=== PATIENT | female | born 1970 | race African-American/Black ===

== ENCOUNTER 2023-06-12 08:09 | Outpatient (OUT) | payer OTHER, SELFPAY ==
[2023-06-12 08:54] LABS: Erythrocyte Sedimentation Rate 31 mm/hr (<=30)
[2023-06-13 06:09] LABS: Rheumatoid Factor (RF) <10.0 IU/mL (<14.0)
[2023-06-13 11:09] LABS: Antiscleroderma-70 Antibodies <0.2 AI (0.0-0.9)
[2023-06-13 12:10] LABS: ANA Direct Positive (Negative); Anti-CCP Ab, IgG/IgA 5 units (0-19); Anti-DNA (DS) Ab Qn <1 IU/mL (0-9); RNP Antibodies 2.1 AI (0.0-0.9); Sjogren's Anti-SS-A <0.2 AI (0.0-0.9); Sjogren's Anti-SS-B 0.2 AI (0.0-0.9)
[2023-06-13 14:09] LABS: Angiotensin-Converting Enzyme 69 U/L (14-82)
[2023-06-14 19:14] LABS: QuantiFERON-TB Gold Plus Negative (Negative)
[2023-06-15 18:08] LABS: Aspergillus flavus Negative (Neg:<1:1); Aspergillus fumigatus Negative (Neg:<1:1); Aspergillus niger Negative (Neg:<1:1); Blastomyces Abs, Qn, DID Negative (Neg:<1:1)
[2023-06-15 20:09] LABS: Coccidioides Ab, IgG, EIA 0.4 EIA Units (.); Coccidioides Ab, IgM, EIA 0.1 EIA Units (.)
[2023-06-17 21:09] LABS: Anti-MPO Antibodies <0.2 units (0.0-0.9); Anti-PR3 Antibodies <0.2 units (0.0-0.9); Cytoplasmic (C-ANCA) <1:20 titer (Neg:<1:20); Perinuclear (P-ANCA) <1:20 titer (Neg:<1:20)
[2023-06-18 12:09] LABS: Histoplasma Gal'mannan Ag Ur Negative (<0.5 ng/mL)
== END 2023-06-12 08:10 | disposition home or self-care (01) ==
LOC: LAB 08:14
PROVIDERS: Visit Provider Internal Medicine
DX: R91.8 Other nonspecific abnormal finding of lung field (principal)
CPT/HCPCS: 36415; 82164; 83516; 85652; 86037; 86038; 86200; 86225; 86235; 86430; 86431; 86480; 86606; 86612; 86635; 86698; 87385

== ENCOUNTER 2023-07-05 14:02 | Outpatient (OUT) | payer OTHER, SELFPAY ==
--- NOTE | 2023-07-05 14:09 | PE_ITS ---
[address] [address] Patient Name: VITA KIDD MRN: [id number] date: 1970 Sex: F Assigned Patient Location: PETCT Current Patient Location: Accession/Order Number: [id number] Exam Date: 07/05/2023 15:23 Report Date: 07/08/2023 12:12 At the request of: FABIANA CERON Procedure: PET skull to mid thigh NUCLEAR MEDICINE PET/CT HISTORY: Solitary pulmonary nodule. COMPARISON: CT chest 05/28/2023. METHOD: 14.39 mCi of F-18 FDG was administered intravenously. Blood sugar level at the time of the injection: 88. At 50 minutes from injection, PET images were obtained from the skull base through the midthigh levels in the axial plane. Reformatted images were performed in the sagittal and coronal planes. A low-dose, noncontrast CT scan was performed for attenuation correction and anatomical localization. A low dose, noncontrast and nondiagnostic CT scan was performed for attenuation correction and anatomic localization. Mediastinal blood pool SUV max 3.4 using the patient's body weight as the normalization method. FINDINGS: HEAD AND NECK: There are no metabolically active lymph nodes in the neck. CHEST: There are no metabolically active mediastinal, hilar, or axillary lymph nodes. The major airways are patent. There is no pericardial effusion. There is no evidence of abnormal metabolic uptake in the esophagus. There is a right upper lobe ill-defined non-metabolically active density measuring 1.2 x 0.6 cm. There is a non-metabolically active ill-defined density along the right major fissure measuring 1.5 x 0.7 cm. There are no pleural effusions. There is no pneumothorax. ABDOMEN AND PELVIS: There is no evidence of abnormal metabolic activity in the liver or adrenal glands. There is no evidence of abnormal metabolic active lymph nodes in the abdomen or pelvis. There is no free fluid. There is physiologic uptake in the urinary system and bowel. There is an increased amount of stool. MUSCULOSKELETAL: There is no evidence of abnormal metabolically active bony lesions. PET/PET skull to mid thigh IMPRESSION: Non-metabolically active ill-defined density in the right upper lobe. Non-metabolically active ill-defined density along the right major fissure measuring 1.5 x 0.7 cm. Recommend follow-up non-contrast CT chest in 6 weeks. Increased amount stool. Electronically authenticated by: NATHAN SANDOVAL Date: 07/08/2023 12:12
--- OUTSIDE RECORDS SUMMARY | 2023-07-05 14:09 | XMS_ITS | CCD ---
Author Name Unknown Address [address] [facility] [address] [place] [address] Organization [facility] Care Team Providers Care Lead Manufacturing Technician Name Role Phone FELICITA BARRIENTOS Attending Unavailable FELICITA BARRIENTOS Consulting Unavailable FELICITA BARRIENTOS Admitting Unavailable FRANK SKAGGS Referring Unavailable FRANK SKAGGS Referring Unavailable SERVICES, [facility] Primary Care Unava ilable Problems Problem Classification Problem Date Documented Date Episodic/Chronic Immunizations and screening for infectious disease (1 source) Encounter for screening for human papillomavirus (HPV); Translations: [ENC SCREENING HUMAN PAPILLOMAVIRUS] Onset: 10-04-2020 Episodic Other screening for suspected conditions (not mental disorders or infectious disease) (4 sources) Encounter for screening for malignant neoplasm of cervix; Translations: [ENC SCREENING MALIG NEOPLASM CERV] Onset: 09-27-2020 Episodic Residual codes; unclassified (1 source) Tobacco use; Translations: [Tobacco use] Onset: 05-28-2023 Episodic Results Test Name Value Interpretation Reference Range Facility CT LOW DOSE LUNG SCREENINGon 05-31-2023 CT LOW DOSE LUNG SCREENING CT LOW DOSE LUNG SCREENING CLINICAL INFORMATION: Screening visit: Personal history of tobacco use/personal history of nicotine dependence. Lung cancer screening. The patient is a prior smoker. The patient has a 15 pack year history of smoking. COMPARISON: No relevant prior studies are available. TECHNIQUE: Low dose CT chest performed without contrast with coronal and sagittal and maximum intensity projection reconstructed images. Maximum intensity projection images generated to increase the sensitivity of pulmonary nodule detection. Automated exposure control was utilized. All CT scans at this facility use dose modulation, iterative reconstruction, and/or weight based dosing when appropriate to reduce radiation dose to as low as reasonably achievable. FINDINGS: Diagnostic quality: Satisfactory Lung nodules: Irregular opacities in each lung, examples of which measure 1.6 x 1.3 cm in the right upper lobe (axial image 41) and 2.3 x 0.5 cm in the right lower lobe adjacent to the fissure (axial image 48). Lungs and pleural spaces: Unremarkable Mediastinum: Unremarkable Heart size: Normal Coronary calcification: None Pericardial effusion: None Other findings: None significant IMPRESSION: Lung Rads Category: 4A- Suspicious Recommendation: PET/CT Finalized by Pasquale Gipson MD on 05/30/2023 10:44 PM 4A PET/CT Normal [facility] BI MAMMOGRAM SCREENING TOMOS YNTHESIS BILATERALon 05-09-2023 BI MAMMOGRAM SCREENING TOMOSYNTHESIS BILATERAL This is a summary report. The complete report is available in the patient's medical record. If you cannot access the medical record, please contact the sending organization for a detailed fax or copy. EXAMINATION: BI MAMMOGRAM SCREENING TOMOSYNTHESIS BILATERAL CLINICAL HISTORY: Screening For breast cancer COMPARISON: May 07, 2022. RESULT: Digital mammography and 3D tomosynthesis of bilateral breasts was performed. Dense Breast: There are scattered areas of fibroglandular density. There is no suspicious mass, asymmetry, architectural distortion, or calcification. Typically benign calcifications. Overall appearance stable. CAD analysis was performed and used in the interpretation. IMPRESSION: BIRADS 2 - Benign. Follow-up: Routine Screening Mamm . Board Certified Radiologists. Accredited by the ACR and FDA. MAMMOGRAPHY IS VERY IMPORTANT TO YOUR HEALTH. THE [place] [employer] GUIDELINES RECOMMEND THAT WOMEN 40 YEARS OF AGE AND OLDER SHOULD HAVE A MAMMOGRAM EVERY YEAR. A REMINDER LETTER WILL BE SENT AT THE APPROPRIATE TIME. THIS FACILITY UTILIZES A REMINDER SYSTEM TO ENSURE ALL PATIENTS RECEIVE REMINDER NOTIFICATIONS AT THE APPROPRIATE TIME BASED ON THE RECOMMENDATIONS OF THIS EXAM. THIS INCLUDES REMINDERS FOR ROUTINE SCREENING MAMMOGRAMS, DIAGNOSTIC MAMMOGRAMS IN WHICH THE PATIENT IS ASKED TO RETURN FOR ADDITIONAL VIEWS, OR OTHER BREAST IMAGING INTERVENTIONS WHEN APPROPRIATE. THE PATIENT WILL BE PLACED IN THE APPROPRIATE REMINDER SYSTEM INCLUDING A REMINDER AT THE APPROPRIATE TIME FOR ANY PENDING ADDITIONAL VIEWS. TRANSCRIBED BY: ELECTRONICALLY SIGNED BY: Higinio Abbasi MD Normal Not Available SCREENING MAMMOGRAM W/HERACLIO, BILATERAL*on 05-07-2022 SCREENING MAMMOGRAM W/HERACLIO, BILATERAL* COMPARISON: January 09, 2021, June 13, 2020, June 03, 2020, May 08, 2019 TECHNIQUE: 2D and 3D Tomosynthesis of the right and left breasts was performed. FINDINGS: Breast composition demonstrates scattered fibroglandular densities. Overall appearance is stable. No suspicious microcalcifications, asymmetry, architectural distortion, or associated features are present. IMPRESSION: BIRADS 1: Negative mammogram Board Certified Radiologist. Accredited by the ACR and FDA. MAMMOGRAPHY IS VERY IMPORTANT TO YOUR HEALTH. THE CURRENT [place] [employer] AND [employer]PREH[employer] CANC[employer]WORK GUIDELINES RECOMMENDS ANNUAL MAMMOGRAPHY BEGINNING AT AGE 40 THIS FACILITY USES A REMINDER SYSTEM TO ENSURE ALL PATIENTS RECEIVE REMINDER NOTIFICATIONS AT THE APPROPRIATE TIME BASED ON THE RECOMMENDATIONS OF THIS EXAM. Report reported and signed by Higinio Abbasi on 05/08/2022 0713 Normal [facility] Technical Aide Pap IG, rfx Aptima HPV, rfx 16/18,45on 10-03-2020 . . Normal [facility] Comment on above: Result Comment: Perf ormed at: WB Performed By: #### P APHR2A #### [facility] [address] [place] [address] Elliott Dot DIAGNOSIS: Comment Normal [facility] Comment on above: Result Comment: NEGA TIVE FOR INTRAEPITHELIAL LESION OR MALIGNANCY. PREDOMINANCE OF COCCOBACILLI CONSISTENT WITH SHIFT IN VAGINAL BETZY IS PRESENT. Performed at: WB Performed By: #### P APHR2A #### [facility] [address] [address] Elliott Dot HPV Aptima Positive Abnormal Negative [facility] Comment on above: Result Comment: This nucleic acid amplification test detects fourteen high-risk HPV types (16,18,31,33,35,39,45,51,52,56,58,59,66,68) without differentiation. Performed at: =G Performed By: #### P APHR2A #### [facility] [address] [address] Elliott Dot HPV Genotype 16 Negative Normal Negative [facility] Comment on above: Result Comment: Perf ormed at: =G Performed By: #### P APHR2A #### [facility] [address] [address] Elliott Dot HPV Genotype 18,45 Negative Normal Negative [facility] Comment on above: Result Comment: Perf ormed at: =G Performed By: #### P APHR2A #### [facility] [address] [id number] Elliott Chris Methodology: Comment Normal [facility] Comment on above: Result Comment: This liquid based ThinPrep(R) pap test was screened with the use of an image guided system. Performed at: WB Performed By: #### P APHR2A #### [facility] [address] [place], [place] [address] Elliott Chris Note: Comment Normal [facility] Comment on above: Result Comment: The Pap smear is a screening test designed to aid in the detection of premalignant and malignant conditions of the uterine cervix. It is not a diagnostic procedure and should not be used as the sole means of detecting cervical cancer. Both false-positive and false-negative reports do occur. . Performed at: WB Performed By: #### P APHR2A #### [facility] [address] [place], [place] [id number] Elliott Chris Performed by: Comment Normal [facility] Comment on above: Result Comment: Angela Prater Wire Weaver Cloth (ASCP) Performed at: WB Performed By: #### P APHR2A #### [facility] [address] [id number] Elliott Chris Specimen adequacy: Comment Normal [facility] Comment on above: Result Comment: Sati sfactory for evaluation. No endocervical component is identified. Performed at: WB Performed By: #### P APHR2A #### [facility] [address] [id number] Elliott Chris Encounters Encounter Date Encounter Type Care Provider Facility Start: 05-28-2023 End: 05-29-2023 ambulatory FRANK SHARIFA Johana craig Start: 05-09-2023 End: 05-10-2023 ambulatory FRANK SHARIFA Not Available Start: 09-27-2020 End: 09-27-2020 ambulatory FELICITA BARRIENTOS Facility:[facility]1 Payers Date Payer Category Payer Unknown [id number] 1970 Unknown [id number] 1970 Unknown [id number] 1970 Unknown [id number] [id number] [id number] 1961 Unknown [id number] Summary Purpose Family History No Family History Records FoundNo Family History Records FoundNo Family History Records FoundNo Family History Records Found Advance Directives No Advanced Directives Records FoundNo Advanced Directives Records FoundNo Advanced Directives Records FoundNo Advanced Directives Records Found Additional Source Comments INFORMATION SOURCE (unrecogn ized section and content) DATE CREATED AUTHOR 10/05/2020 [facility] DATE CREATED AUTHOR AUTHOR'S ORGANIZ ATION 05/11/2022 [facility] dical Specialist DATE CREATED AUTHOR AUTHOR'S ORGANIZ ATION 05/15/2023 [facility] Specialists EPIC DATE CREATED AUTHOR AUTHOR'S ORGANIZ ATION 06/02/2023 [facility] FOR RECORDS PERTAINING TO PATIENTS WHO ARE OR HAVE BEEN ENROLLED IN A CHEMICAL DEPENDENCY/SUBSTANCEABUSE PROGRAM, SOME INFORMATION MAY BE OMITTED. This clinical summary was aggregated from multiple sources. Caution should be exercised in using it in the provision of clinical care. This summary normalizes information from multiple sources, and as a consequence, information in this document may materially change the coding, format and clinical context of patient data. In addition, data may be omitted in some cases. CLINICAL DECISIONS SHOULD BE BASED ON THE PRIMARY CLINICAL RECORDS. [facility] [employer] [facility]. provides no warranty or guarantee of the accuracy or completeness of information in this document.
== END 2023-07-05 14:03 | disposition home or self-care (01) ==
LOC: PETCT 14:03
PROVIDERS: Visit Provider Internal Medicine
DX: R91.8 Other nonspecific abnormal finding of lung field (principal)
CPT/HCPCS: 78815; A9552

== ENCOUNTER 2023-08-21 15:11 | Outpatient (OUT) | payer OTHER, SELFPAY ==
--- NOTE | 2023-08-21 15:13 | CT_ITS ---
The [place] [id number] Patient Name: VITA KIDD MRN: [id number] date: 1970 Sex: F Assigned Patient Location: CT Current Patient Location: CT Accession/Order Number: [id number] Exam Date: 08/21/2023 15:22 Report Date: 08/21/2023 16:51 At the request of: FABIANA CERON Procedure: CT chest wo con EXAM: CT chest wo con HISTORY: multiple pulmonary nodules R91.8 COMPARISON: CT chest 05/28/2023, PET CT 07/05/2023 TECHNIQUE: CT imaging obtained through the chest without intravenous contrast. Coronal and axial MIP reformatted images obtained. FINDINGS: Heart size is normal. No pericardial effusion. Normal thoracic vasculature. No thoracic lymphadenopathy. Central tracheobronchial tree is patent. No pleural effusion or pneumothorax. No change in the irregular focal density in the right upper lobe, series 4 image 40, measuring approximately 1.2 x 0.6 cm. A bandlike, curvilinear density in the right lower lobe along the major fissure on image 47 is also unchanged, measuring up to approximately 2.4 cm in length, and 0.3 cm in thickness. Additional, more ill-defined focal density on image 54 is also unchanged. Bones and soft tissues: No suspicious bone findings. Degenerative changes of the thoracic spine. Partially imaged upper abdomen: Limited. CT/CT chest wo con IMPRESSION: No change in scattered right lung nodular densities/opacities. Lung-RADs 3 MANAGEMENT: [address] Chest without contrast. Electronically authenticated by: CELENA PASTOR Date: 08/21/2023 16:51
== END 2023-08-21 15:12 | disposition home or self-care (01) ==
LOC: CT 15:11
PROVIDERS: Visit Provider Internal Medicine
DX: R91.8 Other nonspecific abnormal finding of lung field (principal)
CPT/HCPCS: 71250

== ENCOUNTER 2024-02-19 15:09 | Outpatient (OUT) | payer OTHER, SELFPAY ==
--- NOTE | 2024-02-19 15:14 | CT_ITS ---
The [address] [address] Patient Name: VITA KIDD MRN: [id number] date: 1970 Sex: F Assigned Patient Location: CT Current Patient Location: Accession/Order Number: [id number] Exam Date: 02/19/2024 15:20 Report Date: 02/20/2024 11:07 At the request of: FABIANA CERON Procedure: CT chest wo con EXAMINATION: CT chest wo con HISTORY: Multiple Pulmonary Nodules COMPARISON: 08/21/2023, 07/05/2023 PET scan TECHNIQUE: Multi-planar CT images were created with IV contrast. Axial, Coronal, and Sagittal images. Dose reduction techniques were achieved by using automated exposure control and/or adjustment of mA and/or kV according to patient size and/or use of iterative reconstruction technique. FINDINGS: LUNGS: Again demonstrated are multiple ill-defined spiculated groundglass/semisolid nodules throughout both lungs the largest measuring 2 cm in the right upper lobe axial image #40. These are stable both in size and shape from the prior exam. No new pulmonary nodule or mass is identified. PLEURA: No mass, effusion, or pneumothorax. VASCULATURE: No abnormality. PABLITO: No mass or adenopathy. MEDIASTINUM: No mass or adenopathy. CARDIAC: No enlargement or pericardial effusion Coronary arteries: Mild calcifications AORTA: No aortic aneurysm CHEST WALL: No mass or axillary adenopathy. BONES: No bone lesion or fracture. LIMITED ABDOMEN: No suspicious findings. Limited images of the upper abdomen. OTHER: Negative. CT/CT chest wo con IMPRESSION: Stable scattered ill-defined bilateral parenchymal nodules most significant in the right upper lobe. Stability over the course of 11 months suggests a benign process. Consider additional follow-up in 12 months Electronically authenticated by: MAVERICK VERDIN Date: 02/20/2024 11:07
--- OUTSIDE RECORDS SUMMARY | 2024-02-19 15:15 | XMS_ITS | CCD ---
Author Organization [facility] Care Team Providers Care Booker Name Role Phone FELICITA BARRIENTOS Attending Unavailable FELICITA BARRIENTOS Consulting Unavailable FELICITA BARRIENTOS Admitting Unavailable FRANK SKAGGS Referring Unavailable SERVICES, [facility] Primary Care Unava ilable ED TORRES Attending Unavailable ED TORRES Referring Unavailable FRANK SKAGGS Referring Unavailable Problems Problem Classification Problem Date Documented Date [...] on 05/30/2023 10:44 PM 4A PET/CT Normal [facility] BI MAMMOGRAM SCREENING TOMOS YNTHESIS BILATERALon 05-09-2023 [...] IS VERY IMPORTANT TO YOUR HEALTH. THE [place] GUIDELINES RECOMMEND THAT WOMEN 40 [...] VERY IMPORTANT TO YOUR HEALTH. THE CURRENT [place] [employer] OF [employer] AND N[employer] COMPREHENSIVE CANCER NETWORK GUIDELINES RECOMMENDS ANNUAL MAMMOGRAPHY BEGINNING AT AGE 40 THIS FACILITY USES A REMINDER SYSTEM TO ENSURE ALL PATIENTS RECEIVE REMINDER NOTIFICATIONS AT THE APPROPRIATE TIME BASED ON THE RECOMMENDATIONS OF THIS EXAM. Report reported and signed by Higinio Abbasi on 05/08/2022 0713 Normal [facility] Bonderizer Operator Pap IG, rfx Aptima HPV, rfx 16/18,45on 10-03-2020 . . Normal [facility] Comment on above: Result Comment: Perf ormed at: WB Performed By: #### P APHR2A #### [facility] [address] [place] [address] Elliott Dot DIAGNOSIS: Comment Normal [facility] Comment on above: Result Comment: NEGA TIVE FOR INTRAEPITHELIAL LESION OR MALIGNANCY. PREDOMINANCE OF COCCOBACILLI CONSISTENT WITH SHIFT IN VAGINAL BETZY IS PRESENT. Performed at: WB Performed By: #### P APHR2A #### [facility] [address] [address] Elliott Dot HPV Aptima Positive Abnormal Negative [facility] Comment on above: Result Comment: This nucleic acid amplification test detects fourteen high-risk HPV types (16,18,31,33,35,39,45,51,52,56,58,59,66,68) without differentiation. Performed at: =G Performed By: #### P APHR2A #### [facility] [address] [address] Elliott Dot HPV Genotype 16 Negative Normal Negative [facility] Comment on above: Result Comment: Perf ormed at: =G Performed By: #### P APHR2A #### [facility] [address] [address] Elliott Dot HPV Genotype 18,45 Negative Normal Negative [facility] Comment on above: Result Comment: Perf ormed at: =G Performed By: #### P APHR2A #### [facility] [address] [id number] Elliott Chris Methodology: Comment Normal [facility] Comment on above: Result Comment: This liquid based ThinPrep(R) pap test was screened with the use of an image guided system. Performed at: WB Performed By: #### P APHR2A #### [facility] [address] [id number] Elliott Chris Note: Comment Normal [facility] Comment on above: Result Comment: The [...] WB Performed By: #### P APHR2A #### [facility] [address] [phone] Elliott Chris Performed by: Comment Normal [facility] Comment on above: Result Comment: Angela Prater Surgical Attendant (ASCP) Performed at: WB Performed By: #### P APHR2A #### [facility] [address] [id number] Elliott Chris Specimen adequacy: Comment Normal [facility] Comment on above: Result Comment: Sati sfactory for evaluation. No endocervical component is identified. Performed at: WB Performed By: #### P APHR2A #### [facility] [address] [id number] Elliott Chris Encounters Encounter Date Encounter Type Care Provider Facility Start: 12-31-2023 End: 12-31-2023 ambulatory ED TORRES Not Available Start: 05-28-2023 End: 05-29-2023 ambulatory FRANK SHARIFA Johana craig Start: 05-09-2023 End: 05-09-2023 ambulatory FRANK SKAGGS Not Available Start: 09-27-2020 End: 09-27-2020 ambulatory FELICITA BARRIENTOS Facility: Payers Date Payer Category Payer Unknown [id number] 1970 Unknown [id number] 2.16.84 [id number] 1970 Unknown [id number] 2.16.84 [id number] 1970 Unknown [id number] 2.16.84 [id number] 1970 Unknown [id number] 2.16.84 [id number] 1970 Unknown [id number] 1959 Unknown [id number] Summary Purpose Family History No Family History Records FoundNo Family History Records FoundNo Family History Records FoundNo Family History Records Found Advance Directives No Advanced Directives Records FoundNo Advanced Directives Records FoundNo Advanced Directives Records FoundNo Advanced Directives Records Found Additional Source Comments INFORMATION SOURCE (unrecogn ized section and content) DATE CREATED AUTHOR 10/05/2020 [facility] DATE CREATED AUTHOR AUTHOR'S ORGANIZ ATION 05/11/2022 [facility] dical Specialist DATE CREATED AUTHOR AUTHOR'S ORGANIZ ATION 06/02/2023 [facility] DATE CREATED AUTHOR AUTHOR'S ORGANIZ ATION 01/02/2024 [facility] dical Specialists [facility] FOR RECORDS PERTAINING TO PATIENTS WHO ARE [...] BE BASED ON THE PRIMARY CLINICAL RECORDS. [facility] [employer] [facility]. provides no warranty or guarantee of the accuracy or completeness of information in this document.
== END 2024-02-19 15:10 | disposition home or self-care (01) ==
LOC: CT 15:10
PROVIDERS: PCP Nurse Practitioner; Visit Provider Internal Medicine
DX: R91.8 Other nonspecific abnormal finding of lung field (principal)
CPT/HCPCS: 71250

== ENCOUNTER 2025-03-02 15:31 | Outpatient (OUT) | payer OTHER, SELFPAY ==
--- OUTSIDE RECORDS SUMMARY | 2024-03-23 13:30 | XMS_ITS ---
Author Organization [facility] Address [address] [place], [place] [id number] Care Team Providers Care Oil Gauger Name Role Phone Johanna Zamudio Primary Care Provider [phone] REASON FOR VISIT htn Social History Sex Assigned At : Social History Observation Description Sex Assigned At Female Encounters Encounter Location Date Provider Diagnosis [address] [id number] 03/23 Johanna Zamudio Plan Of Treatment Next Appt Details Provider Name:Alina Fernandez , 04/05/2025 04:15:00 PM, [address] [place], [place], [id number], Progress Notes * Patricia HOPKINS DDOB:[birth year] (54 yo F)Acc No.[id number]:03/23/2024 Medical Note Patient: Patricia ESTEVEZ Provider: Pravin Zamudio :1970 A ge:53 Y S ex:Female Date:03/23/2024 Address:[address] [place], [place] [id number] Subjective: * Chief Complaints: * 1 . Htn. * Medical History: Objective: * Vitals: Assessment: Plan: * Treatment: * Billing Information: * Visit Code: * Procedure Codes: * Electronic signature of JOHNNIE Cagle on 03/02/2025 at 03:34 PM EDT Sign off status: Pending * Provider: Pravin Zamudio Date: 05/23/2023 Generated for Gino bonilla/Fredis/Ousmane on: 03:34 PM EDT
--- OUTSIDE RECORDS SUMMARY | 2025-02-24 11:30 | XMS_ITS ---
Author Organization [facility] [place] Address [address] [place] [address] Care Team Providers Care Oven Heater Name Role Phone Johanna Bhandari Primary Care Provider UnavailPasquale Humphrey Unavailable [phone] REASON FOR VISIT 1 year f/u Encounters Encounter Location Date Provider Diagnosis [facility] [place] [address] [place] [address] 02/24/2025 Pasquale Rodrigues Plan Of Treatment Next Appt Details Provider Name:Corwin Washington, 09/27/2025 03:40:00 PM, [address] [place] [address], [phone], Progress Notes * Patricia HOPKINS DDOB:[birth year] (54 yo F)Acc No.[id number]:02/24/2025 UNLOCKED PROGRESS NOTE Follow Up Patient: Patricia ESTEVEZ Provider: Julien Rodrigues DO :1970 A ge:54 Y S ex:Female Date:02/24/2025 Address:[address] [place], [place] [id number] Pcp:JOHNNIE Fowler Subjective: * Chief Complaints: * 1 . 1 year f/u. * Medical History: Objective: * Vitals: Assessment: Plan: * Treatment: * * Electronic signature of Betzaida Rodrigues DO on 03/02/2025 at 03:34 PM EDT Sign off status: Pending Visit Status: O FF CANC (OFFICE CANCEL) * Provider: Julien Rodrigues, Date: 1 Generated for Gino bonilla/Fredis/Ousmane on: 03:34 PM EDT
--- OUTSIDE RECORDS SUMMARY | 2025-03-02 15:35 | XMS_ITS | Patient Health Record ---
Author Organization [facility] vices Address [address], [place] [id number] Care Team Providers Care Wildlife Manager Name Role Phone Johanna Zamudio Primary Care Provider Lexus Guo Unavailable German, Indira Unavailable [phone] Alina Fernadnez Unavailable [phone] Allergies No Known Allergies Results Component Value Reference Range Notes LIPID PROFILE Reviewed date:10/26/2024 07:14:05 AM Interpretation: Performing Lab: Notes/Report: CHOLESTEROL 192 150-200 mg/dL TRIGLYCERIDE 136 27-150 mg/dL HDL CHOLESTEROL 41 >39 mg/dL HDL <40 mg/dL - High Risk HDL > or = 40mg/dL- Desirable HDL >60 mg/dL - Negative Risk LDL (CALC) 124 <130 mg/dL LDL <100 mg/dL - Desirable LDL >160 mg/dL - High Risk CHOLESTEROL:HDL 4.7 1.0-5.0 NA VERY LOW LIPOPROTEIN 27 0-30 mg/dL PERFORMED AT [facility] [address],[place] [address] SALONI Vinay Marr w/3D Too at Reviewed date:06/19/2024 11:15:03 AM Interpretation: Performing Lab: Notes/Report: Reason For Referral No Information Medications Medication SIG (Take, Route, Frequency, Duration) Notes Start Date End Date Status tiZANidine HCl 2 MG 1 tablet as needed O rally 3 times a day Active Vitamin D 25 MCG (1000 UT) 1 tablet Oral ly Once a day Active Melatonin 5 MG 1 tablet Orally At bedtime, as needed Active Atorvastatin Calcium 40 MG 1 tablet Oral ly Once a day Active Losartan Potassium-HCTZ 50-12.5 MG 1 tablet Orally Once a day; Duration: 90 days Active Social History Tobacco Use: Social History Observation Description Date Details (start date - stop date) Former Smoker 02/09/1988 - 05/20/2023 Sex Assigned At : Social History Observation Description Sex Assigned At Female Tobacco Use/Smoking Question Answer Notes How long has it been since you last smoked? < 1 month patient entered data When did you start smoking? 02/09/1988 p atient entered data When did you stop smoking? 05/20/2023 raymundo hernandez entered data Tobacco use: former smoker patient enter ed data How often do you smoke cigarettes? every day How many cigarettes a day do you smoke? 6-10 How soon after you wake up d o you smoke your first cigarette? 6-30 minutes CAGE-AID Questionnaire (2018 Edition) Question Answer Notes Have you ever felt that you ought to cut down on your drinking or drug use? No patient entered data Have people annoyed you by c riticizing your drinking or drug use? No patient entered data Have you ever felt bad or gu ilty about your drinking or drug use? No patient entered data Have you ever had a drink or used drugs first thing in the morning to steady your nerves or to get rid of a hangover? No patient entered data CAGE-AID Score 0 Interpretation Negative PRAPARE Question Answer Notes Date Completed/Updated: 06/13/2023 rowena nt entered data What is your current housing situation? I have housing patient entered data Are you worried about losing your housing? No patient entered data What is the highest level of school that you have finished? 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 No How often do you see or talk to people that you care about and feel close to? (For example: talking to friends on the phone, visiting friends or family, going to pentecostal or club meetings) 1 or 2 times a week patient entered data In the past year have you sp ent more than 2 nights in a row in a chcf, intermediate, mcfp center, or juvenile correctional facility? No patient entered victorino a What country are you from? [place] raymundo hernandez entered data In the past year, have you b een afraid of your partner or ex-partner? I have not had a partner in the past year patient entered data PRAPARE Score: 3 Problems Problem Type SNOMED Code ICD Code Onset Dates Problem Status W/U Status Risk Notes Problem Obese class II (975249521569725 ) BMI 38.0-38.9,adult (Z68.38) Active confirmed Problem Hyperlipidemia (66839751) Hyperlipidemia (E78.5) Active confirmed Comment:Chiara nue with current medication and diet regimen as able, Problem Hypertension (13642793) Hypertension (I10) Active confirmed Problem Current smoker (84876418) Current smoker (F17.200) Active confirmed Comment:Quit with patches workplace pay for it, Problem Hematuria syndrome (46636217) Blood in the urine (R31.9) 009 Problem resolved confirmed Description:H ematuria Problem Absence of bladder continence (335871602) Absence of bladder continence (R32) 009 Problem resolved confirmed Description:U rinary incontinence Problem Cystitis (44440937) Cystitis (N30.90) 008 Problem resolved confirmed Problem Hyperlipidemia (96876376) Hyperlipidemia NEC/NOS (272.4) (E78.5) 008 Active confirmed Comment:On Lipitor 20 mg daily TG 250 LDL 90, Problem Colon cancer screening (750006747) Colon cancer screening (Z12.11) Active confirmed Problem Conjunctivitis, acute (372.0) (372.0) 007 Problem resolved confirmed Problem Hyperglycemia (56439386) Hyperglycemia (R73.9) Active confirmed Problem Chronic kidney disease stage 3A (618125095) Stage 3a chronic kidney disease (N18.31) Active confirmed Problem Lumbar pain (573013084) Lumbar pain (M54.50) Active confirmed Comment:Can use ice and moist heat as needed Can use Tylenol Arthritis as needed for breakthrough pain, Vital Signs Heart Rate 71 /min 10/05/2024 Cathy Bolton 10/05/2024 03:52:03 PM EDT > Temperature 97.7 degrees Fahrenheit 10/05/2024 Martin yusuf, Varsha 10/05/2024 03:52:03 PM EDT > Respiratory Rate 18 /min 10/05/2024 Rosemarie Bolton 10/05/2024 03:52:03 PM EDT > Blood pressure diastolic 78 mm Hg 10/05/2024 Varsha Rivera 10/05/2024 03:52:03 PM EDT > Oximetry 96 % 10/05/2024 Cathy Bolton es 10/05/2024 03:52:03 PM EDT > Height-cm 167.01 cm 10/05/2024 Bolton Coradevin suggs 10/05/2024 03:52:03 PM EDT > Weight-kg 108.64 kg 10/05/2024 Bolton Cathy es 10/05/2024 03:52:03 PM EDT > Height 65.75 in 10/05/2024 Bolton Coradevin suggs 10/05/2024 03:52:03 PM EDT > Blood pressure systolic 138 mm Hg 10/05/2024 Varsha Fierro 10/05/2024 03:52:03 PM EDT > Weight 239.5 lbs 10/05/2024 Cathy Bolton es 10/05/2024 03:52:03 PM EDT > BMI 38.95 kg/m2 10/05/2024 Cathy Bolton es 10/05/2024 03:52:03 PM EDT > Encounters Encounter Location Date Provider Diagnosis Main [address] [place], [place] [id number] 04/06/2024 [facility] Medication refill Z7 6.0 ; Hypertension I10 ; Severe obesity (BMI >= 40) E66.01 and BMI 40.0-44.9, adult Z68.[address] [id number] 10/05/2024 Johanna Robb Hypertension I10 ; Hyperlipidemia E78.5 ; Dietary counseling Z71.3 ; Exercise counseling Z71.82 and BMI 38.0-38.9,adult Z68.38 Main [address] [facility] [place] [place] [id number] 04/07/2024 Alina Fernandez Screening mammogram, encounter for Z12.[address] [id number] 04/08/2024 Indira German Screening mammogram for breast cancer Z12.31 Main [address] [place], [place] [id number] 12/21/2024 Lexus Orozconestor Hypertension I10 Assessments Encounter Date Diagnosis (ICD Code) Assessment Notes Treatment Notes Treatment Clinical Notes Section Notes 04/06/2024 Hypertension (ICD-10 - I10) HTN stable. Will continue current medications. Encouraged healthy diet and exercise. F/u 6 months & PRN 04/06/2024 Medication refill (ICD-10 - Z76.0) 04/07/2024 Screening mammogram, encounter for (ICD-10 - Z12.31) 04/08/2024 Screening mammogram for breast cancer (ICD-10 - Z12.31) 10/05/2024 Hyperlipidemia (ICD-10 - E78.5) 10/05/2024 Hypertension (ICD-10 - I10) stable at this time continue same regimen 12/21/2024 Hypertension (ICD-10 - I10) 04/06/2024 Severe obesity (BMI >= 40) (ICD-10 - E66.01) 04/06/2024 BMI 40.0-44.9, adult (ICD-10 - Z68.41) 10/05/2024 Dietary counseling (ICD-10 - Z71.3) 10/05/2024 Exercise counseling (ICD-10 - Z71.82) 10/05/2024 BMI 38.0-38.9,adult (ICD-10 - Z68.38) Plan Of Treatment Next Appt Details Provider Name:Alina Fernandez , 04/05/2025 04:15:00 PM, [address] [place], [place], [id number], Insurance Providers Payer Name Payer Address Payer Phone Subscriber Number Group Number Insured Name Patient Relationship to Insured Coverage Start Date Coverage End Date [facility] [address] [address] [place] [address] [id number] Rebecca Hopkins Self - patient is the insured 3 Medical (General) History Medical History History ICD Code Hyperlipemia E78.5 Allergic rhinitis J30.9 Hypercholesterolemia E78.00 Hypertension Surgical History Surgery Date(Month/Year) EXTENSIVE HYSTERECTOMY 2012 Hospitalization History Reason Date(Month/Year) See Above
--- OUTSIDE RECORDS SUMMARY | 2025-03-02 15:35 | XMS_ITS | Clinical Summary ---
Author Organization [facility] Healthcare Address [address] [place] [address] Care Team Providers Care Meter Setter Name Role Phone Esme Bhatia MD Primary Care Provider [phone] Allergies No known active allergies Medications losartan (Cozaar) 50 MG tablet Take 50 mg by mouth Daily 05/17/2023 Active atorvastatin (Lipitor) 40 MG tablet Take 40 mg by mouth Daily Active tiZANidine (Zanaflex) 2 MG capsule Take by mouth Active Family History Relation Name Status Comments Father Mother Social History Tobacco Use Types Packs/Day Years Used Date Smoking Tobacco: Former Cigarettes 0.5 36 1 988 - 05/20/2023 Tobacco Cessation:Counseling Given: Not Answered Alcohol Use Standard Drinks/Week Comments Yes 3 (1 standard drink = 0.6 oz pur e alcohol) 1x weekly Comments Unknown Sex and Gender Information Value Date Recorded Sex Assigned at Female 05/08/2023 3:22 PM EST Legal Sex Female 7:36 PM EDT Gender Identity Female 05/08/2023 3:22 PM EST Sexual Orientation Not on file Last Filed Vital Signs Vital Sign Reading Time Taken Comments Blood Pressure 150/96 06/12/2018 12:00 PM EST Pulse - - Temperature - - Respiratory Rate - - Oxygen Saturation - - Inhaled Oxygen Concentration - - Weight 108 kg (239 lb) 12/31/2023 3:31 PM EDT Height 167.6 cm (5' 6 ) 12/31/2023 3:31 PM EDT Body Mass Index 38.58 12/31/2023 3:31 PM EDT Plan of Treatment Health Maintenance Due Date Last Done Comments CT Colonography 1968 Colonoscopy 1968 FIT 1968 FOBT 1968 Sigmoidoscopy 1968 Pap Smear 1989 Cervical Cancer Screening 1998 HPV/Cotest 1998 Influenza Vaccine (#1) 2025 Mammogram 05/18/2025 05/18/2024, 04/20, 05/07/2022, Additional history exists Colorectal Cancer Screening 12/09/2026 FIT-DNA 12/09/2026 12/10/2023, 10/10/2020 Procedures Procedure Name Priority Date/Time Associated Diagnosis Comments BI MAMMOGRAM SCREENING TOMOSYNTHESIS BILATERAL Routine 05/18/2024 3:39 PM EST Encounter for screening mammogram for malignant neoplasm of breast from Last 3 Months or Most Recently Relevant to Health Maintenance Results * Bilateral screening mammogram with tomosynthesis (05/18/2024 3:39 PM EST) Anatomical Region Laterality Modality Breast Bilateral Mammography 05/21/2024 10:5 4 AM EST Impressions 05/21/2024 11:00 AM EST Impression: No specific evidence of malignancy seen in either breast. BIRADS 2 - Benign Findings DENSITY: There are scattered areas of fibroglandular density. FOLLOW-UP: Routine Screening Mammogram ELECTRONICALLY SIGNED BY: Milan Mireles M.D. Narrative 05/21/2024 11:00 AM EST Examination: BI MAMMOGRAM SCREENING TOMOSYNTHESIS BILATERAL Clinical History: Screening for breast cancer Technique: Screening digital mammography study of both breasts was performed with 2-D and 3-D tomosynthesis imaging. Study was compared to the prior exam dated 05/09/2023. Findings: There is no evidence of interval dominant spiculated mass, grouped microcalcifications, or skin thickening which would be suggestive of malignancy. Axillary lymph nodes are noted bilaterally. Procedure Note Milan Mireles MD - 05/21/2024 Examination: BI MAMMOGRAM SCREENING TOMOSYNTHESIS BILATERAL Clinical History: Screening for breast cancer Technique: Screening digital mammography study of both breasts wasperformed with 2-D and 3-D tomosynthesis imaging. Study was compared tothe prior exam dated 05/09/2023. Findings: There is no evidence of interval dominant spiculated mass,grouped microcalcifications, or skin thickening which would be suggestiveof malignancy. Axillary lymph nodes are noted bilaterally. IMPRESSION: Impression: No specific evidence of malignancy seen in either breast. BIRADS 2 - Benign Findings DENSITY: There are scattered areas of fibroglandular density. FOLLOW-UP: Routine Screening Mammogram ELECTRONICALLY SIGNED BY: Milan Mireles M.D. us Alina Fernandez MD IMG BI PROCEDURES Final Result from Last 3 Months or Most Recently Relevant to Health Maintenance Insurance [employer] Care Teams Meter Setter Relationship Specialty Start Date End Date Esme Bhatia MD [facility] [id number] PCP - General Pediatrics 12/31/23
--- OUTSIDE RECORDS SUMMARY | 2025-03-02 15:35 | XMS_ITS | Patient Health Record ---
Author Organization [facility] [place] Address [address] [place] [address] Care Team Providers Care Ticket Sorter Name Role Phone Johanna Bhandari Primary Care Provider Unavaila Corwin Vallecillo Unavailable [phone] Pasquale Rodrigues Unavailable [phone] Allergies No Known Allergies Results Component Value Reference Range Notes BMP w/GFR Reviewed date:03/18/2024 08:45:29 AM Interpretation: Performing Lab:[facility]), [facility], [place]. [address] PH:[phone] Notes/Report: SODIUM 138 134-146 mmol/L POTASSIUM 3.7 3.5-5.0 mmol/L CHLORIDE 102 98-109 mmol/L CARBON DIOXIDE 29 22-32 mmol/L ANION GAP 7 5-15 mmol/L BLOOD UREA NITROGEN 20 5-23 mg/dL CREATININE 1.30 0.40-1.00 mg/dL METHOD TRACE ABLE TO IDMS STANDARD GLUCOSE 103 65-99 mg/dL CALCIUM 9.0 8.5-10.5 mg/dL eGFR (CKD-EPI) NON-RACE DEPENDENT 49 >59 ml/min/1.73sq.m Reported eGFR is based on the CKD-EPI 2020 equation that does not use a race coefficient. PERFORMED AT [facility] [id number],[place] [address] CBC (COMPLETE BLOOD COUNT) * Reviewed date:03/18/2024 08:46:44 AM Interpretation: Performing Lab:[facility]), [facility], [place]. [address] PH:[phone] Notes/Report: WBC COUNT 4.7 4.0-11.0 X10E9/L RBC COUNT 4.23 3.80-5.20 X10E12/L HEMOGLOBIN 13.2 11.7-15.5 g/dL HEMATOCRIT 39.1 35-47 % MCV 93 80-100 fL MCH 31.3 27-34 pg MCHC 33.8 32-36 g/dL RDW 13.5 11.5-15.0 % PLATELET COUNT 284 150-450 X10E9/L MPV 7.8 7-12 fL [address]MED [address] [address] ALBUMIN Reviewed date:03/18/2024 08:45:40 AM Interpretation: Performing Lab:[facility]), [address] [place], [place] [address]E., [address] [address] PH:[phone] Notes/Report: ALBUMIN 4.1 3.2-5.3 g/dL PERFORMED AT [address] [place] [address] MAGNESIUM Reviewed date:03/18/2024 08:42:17 AM Interpretation: Performing Lab:[facility]), [address] [place] [address] AVE[address] [address] PH:[phone] Notes/Report: MAGNESIUM 1.9 1.8-2.6 mg/dL PERFORMED AT [address] [address] PHOSPHORUS Reviewed date:03/18/2024 08:39:09 AM Interpretation: Performing Lab:[facility]), [address] [place] [address] AVE[address] [place] [address]. [address] PH:[phone] Notes/Report: PHOSPHORUS 3.8 2.4-4.9 mg/dL PERFORMED AT [address] [address] MICROALBUMIN WITH RATIO Reviewed date:03/18/2024 08:37:11 AM Interpretation: Performing Lab:[facility]), [address] [place] [address] AVE[address] [place]. [address] PH:[phone] Notes/Report: MICROALBUMIN, URINE <0.7 0.0-1.9 mg/dL URINE CREAT 148.72 ALB/CREAT RATIO NOT CALCULATED 0.0-30.0 mg/g creat Result for Albumin/Creatinine Ratio cannot be reliably calculated because urine albumin and or urine creatinine is below the detection limit of the assay. PERFORMED AT [address] [address] [facility] Reviewed date:03/18/2024 08:37:46 AM Interpretation: Performing Lab:[facility]), [address] [place] [address], [address] [address] PH:[phone] Notes/Report: PTH INTACT 139 12-88 pg/mL PERFORMED AT [address] [address] VITAMIN D 25 HYD TOT Reviewed date:03/18/2024 08:36:59 AM Interpretation: Performing Lab:[facility]), [address] [place] [address], [address] [address] PH:[phone] Notes/Report: VITAMIN D 25 HYD TOT 15.4 30-100 ng/mL Vitamin D status 25 [place] Vitamin D Deficiency <20 ng/mL Insufficiency 20-29 ng/mL Sufficiency 30-100 ng/mL Toxicity >100 ng/mL NOTE: A pediatric reference range has not been established by the selling specialist of this kit. The [place] [employer] recommends a Vitamin D level of = or >20ng/mL in infants and children. PERFORMED AT [address] [address] URIC ACID Reviewed date:03/18/2024 08:38:44 AM Interpretation: Performing Lab:[facility]), [address] [place] [address], [address] [address] PH:[phone] Notes/Report: URIC ACID 7.7 2.6-7.2 mg/dL PERFORMED AT [address], [place] [address] URINALYSIS Reviewed date:03/18/2024 08:46:30 AM Interpretation: Performing Lab:[facility]), [address] [place] [address], [address], [place]. [address] PH:[phone] Notes/Report: COLOR YELLOW YELLOW TURBIDITY CLEAR CLEAR SPECIFIC GRAVITY 1.022 1.003-1.035 NITRITE Negative Negative PH,URINE 5.5 5.0-8.5 LEUKOCYTE ESTERASE Negative Negative PROTEIN Negative Negative mg/dL GLUCOSE (URINE) Negative Negative mg/dL KETONES (URINE) Negative Negative mg/dL UROBILINOGEN <1.1 <1.1 eu/dL BILIRUBIN (URINE) Negative Negative BLOOD/HGB Negative Negative PERFORMED AT [address] [place] [address] BMP w/GFR Reviewed date:09/15/2024 12:24:18 PM Interpretation: Performing Lab: Notes/Report: SODIUM 136 134-146 mmol/L POTASSIUM 3.8 3.5-5.0 mmol/L CHLORIDE 100 98-109 mmol/L CARBON DIOXIDE 27 22-32 mmol/L ANION GAP 9 5-15 mmol/L BLOOD UREA NITROGEN 18 5-23 mg/dL CREATININE 1.01 0.40-1.00 mg/dL METHOD TRACE ABLE TO IDCA STANDARD GLUCOSE 118 65-99 mg/dL CALCIUM 9.7 8.5-10.5 mg/dL EGFR (CKD-EPI) NON-RACE DEPENDENT 65 >=60 ml/min/1.73sq.m Reported eGFR is based on the CKD-EPI 2020 equation that does not use a race coefficient. PERFORMED AT [address], [place] [address] CBC (COMPLETE BLOOD COUNT) * Reviewed date:09/15/2024 12:25:03 PM Interpretation: Performing Lab: Notes/Report: WBC 6.0 4-11 x10E9/L RBC COUNT 4.09 3.8-5.2 X10E12/L HEMOGLOBIN 12.9 11.7-15.5 g/dL HEMATOCRIT 37.3 35-47 % MCV 91 80-100 fL MCH 31.5 27-34 pg MCHC 34.5 32-36 g/dL RDW 14.0 11.5-15 % PLATELET COUNT 277 150-450 X10E9/L MPV 7.9 7-12 fL PERFORMED AT [address] [place] [address] ALBUMIN Reviewed date:09/15/2024 12:23:58 PM Interpretation: Performing Lab: Notes/Report: ALBUMIN 4.4 3.2-5.3 g/dL PERFORMED AT [address] [place] [address] MAGNESIUM Reviewed date:09/15/2024 12:24:51 PM Interpretation: Performing Lab: Notes/Report: MAGNESIUM 1.8 1.8-2.6 mg/dL PERFORMED AT [address] [place] [address] PHOSPHORUS Reviewed date:09/15/2024 12:24:40 PM Interpretation: Performing Lab: Notes/Report: PHOSPHORUS 4.3 2.4-4.9 mg/dL PERFORMED AT [address] [place] [address] [facility]) Reviewed date:09/15/2024 12:23:47 PM Interpretation: Performing Lab: Notes/Report: PTH INTACT 53 12-88 pg/mL PERFORMED AT [address] [place] [address] VITAMIN D 25 HYD TOT Reviewed date:09/15/2024 12:23:37 PM Interpretation: Performing Lab: Notes/Report: VITAMIN D 25 HYD TOT 29.6 30.0-100.0 ng/mL Vitamin D status 25 [place] Vitamin D ---- Deficiency <20 ng/mL Insufficiency 20-29 ng/mL Sufficiency 30-100 ng/mL Toxicity >100 ng/mL NOTE: A pediatric reference range has not been established by the selling specialist of this kit. The [place] [employer] recommends a Vitamin D level of = or >20ng/mL in infants and children. PERFORMED AT [address],[place] [address] Reason For Referral No Information Medications Medication SIG (Take, Route, Frequency, Duration) Notes Start Date End Date Status Cholecalciferol 25 MCG (1000 UT) 1 capsule Orally Once a day; Duration: 90 days 03/30/2024 Active Lipitor 40 MG 1 tablet Orally Once a day Active Losartan Potassium-HCTZ 50-12.5 MG 1 tablet Orally Once a day Active Melatonin 5 MG 1 tablet in the even ing Orally Once a day Active tiZANidine HCl 2 MG 1 tablet at bedtime as needed Orally Once a day Active Immunizations Vaccine Route Administration Date Status Comme nts SARS-COV-2 (COVID 19) bivale nt 30 mcg/0.3 ml dose Unknown 04/07/2022 Administered Social History Tobacco Use: Social History Observation Description Date Details (start date - stop date) Former Smoker NA - NA Tobacco Use/Smoking Question Answer Notes Patient is a former smoker Additional Findings: Tobacco Non-User Ex-moderat e cigarette smoker (-/day) Tobacco Control (Standard) Question Answer Notes Tobacco use: Former smoker How long has it been since y ou last smoked? 6-12 months Additional Findings: Tobacco non-user Ex -moderate cigarette smoker (-/day) Problems Problem Type SNOMED Code ICD Code Onset Dates Problem Status W/U Status Risk Notes Problem Essential hypertension (31633450) Essential (primary) hypertension (I10) Active confirmed Problem Morbid obesity (064827848) Morbid obesity (E66.01) Active confirmed Problem Chronic kidney disease stage 2 (361100905) Chronic kidney disease (CKD) stage G2/A1, mildly decreased glomerular filtration rate (GFR) between 60-89 mL/min/1.73 square meter and albuminuria creatinine ratio less than 30 mg/g (N18.2) Active confirmed Problem Vitamin D deficiency (03654867) Hypovitaminosis D (E55.9) Active confirmed Problem Hyperparathyroidism (74306008) Hyperparathyroidism (E21.3) Active confirmed Problem Raised antinuclear antibody (078588137) Positive EMILY (antinuclear antibody) (R76.8) Active confirmed Problem Multiple pulmonary nodules (876081371) Multiple pulmonary nodules (R91.8) Active confirmed Problem Ex-tobacco user (finding) (968811536) History of tobacco abuse (Z87.891) Active confirmed Problem Chronic kidney disease stage 3A (disorder) (252179003) Chronic kidney disease, stage 3a (N18.31) Active confirmed Vital Signs Blood pressure diastolic 96 mm Hg 09/28/2024 Height 66.0 in 09/28/2024 Blood pressure systolic 132 mm Hg 09/28/2024 Weight 240.0 lbs 09/28/2024 BMI 38.73 kg/m2 09/28/2024 Encounters Encounter Location Date Provider Diagnosis [facility] [place] [address] [place] [id number] 03/30/2024 Corwin Longparamjit Chronic kidney disea se, stage 3a N18.31 ; Essential (primary) hypertension I10 ; Hypovitaminosis D E55.9 and Hyperparathyroidism E21.3 [facility] [address] [place] [id number] 09/28/2024 Corwin Washington Essential (primary) hypertension I10 and Chronic kidney disease (CKD) stage G2/A1, mildly decreased glomerular filtration rate (GFR) between 60-89 mL/min/1.73 square meter and albuminuria creatinine ratio less than 30 mg/g N18.2 [facility] [place] [address] [place] [address] 01/06/2025 Pasquale Rodrigues Assessments Encounter Date Diagnosis (ICD Code) Assessment Notes Treatment Notes Treatment Clinical Notes Section Notes 03/30/2024 Essential (primary) hypertension (ICD-10 - I10) 03/30/2024 Chronic kidney disease, stage 3a (ICD-10 - N18.31) 53 yo F with 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 No evidence of active sediment or protein in her urine Continue losartan and HCTZ for BP control Start 1,000 units of D3 daily for mild PTH elevation Ca and phos are normal Mg and K are normal Avoid NSAID use No edema present on exam today 09/28/2024 Essential (primary) hypertension (ICD-10 - I10) 09/28/2024 Chronic kidney disea se (CKD) stage G2/A1, mildly decreased glomerular filtration rate (GFR) between 60-89 mL/min/1.73 square meter and albuminuria creatinine ratio less than 30 mg/g (ICD-10 - N18.2) Cr is stable in the CKD 2 range BP is mildly elevated today, continue ARB and HCTZ and follow home BP log, call the office if not at goal Electrolytes are normal CHeck albuminuria before her next visit No edema on exam today PTH is normal 03/30/2024 Hypovitaminosis D (ICD-10 - E55.9) 03/30/2024 Hyperparathyroidism (ICD-10 - E21.3) Plan Of Treatment Pending Test Test Name Order Date UA (URINALYSIS, COMPLETE) 02/05/2024 UA (URINALYSIS, COMPLETE) 09/28/2024 ALBUMIN, BLOOD 03/30/2024 ALBUMIN, BLOOD 02/05/2024 ALBUMIN, BLOOD 09/28/2024 MAGNESIUM 09/28/2024 MAGNESIUM 02/05/2024 MAGNESIUM 03/30/2024 CBC NO DIFF 03/30/2024 CBC NO DIFF 02/05/2024 CBC NO DIFF 09/28/2024 BMP (BASIC MET PANEL - W/GFR) 02/05/2024 BMP (BASIC MET PANEL - W/GFR) 03/30/2024 MICROALBUMIN with ALB/CREAT RATIO, URINE (MALB)) 02/05/2024 PHOSPHORUS 03/30/2024 PHOSPHORUS 09/28/2024 PHOSPHORUS 02/05/2024 PTH INTACT (PARATHYROID HORMONE) 024 PTH INTACT (PARATHYROID HORMONE) 024 URIC ACID 02/05/2024 URIC ACID 09/28/2024 VITAMIN D, 25 LEVEL (TOTAL) 02/05/2024 VITAMIN D, 25 LEVEL (TOTAL) 03/30/2024 RENAL PANEL 09/28/2024 MICROALBUMIN w RADIO MECHANIC HELPER RATIO 09/28/2024 Future Test Test Name Order Date CT Chest w/o contrast 02/17/2025 Next Appt Details Provider Name:Corwin Washington, 09/27/2025 03:40:00 PM, [address] [facility], [place], [address], Insurance Providers Payer Name Payer Address Payer Phone Subscriber Number Group Number Insured Name Patient Relationship to Insured Coverage Start Date Coverage End Date [employer] [address] [address] [place] [address] [id number] Patricia Hopkins Self - patient is the insured Medical (General) History Medical History History ICD Code Multiple pulmonary nodules R91.8 HLD (hyperlipidemia) E78.5 Allergic rhinitis J30.9 Positive EMILY (antinuclear antibody) R76. 8 History of tobacco abuse Z87.891 Morbid obesity E66.01 Surgical History Surgery Date(Month/Year) loop electrosurgical excision procedure (LEEP) hysterectomy cyst removal
--- OUTSIDE RECORDS SUMMARY | 2025-03-02 15:36 | XMS_ITS | CCD ---
Author Organization [facility] Inform ion [facility] Care Team Providers Care Shrimp Peeler Name Role Phone FELICITA BARRIENTOS Attending Unavailable FELICITA BARRIENTOS Consulting Unavailable FELICITA BARRIENTOS Admitting Unavailable ED TORRES Attending Unavailable ED TORRES Referring Unavailable TERESA AYALA Referring Unavailable Services, [facility] Provider BLAKE YANG Referring Unavailable SERVICES, [facility] BLAKE YANG Referring Unavailable SERVICES, [facility] FRANK SKAGGS Referring Unavailable SERVICES, [facility] Problems Problem Classification Problem Date Documented Date Episodic/Chronic Chronic kidney disease (1 source) Chronic kidney disease; Translations: [Chronic kidney disease, stage 3a] Onset: 03-17-2024 Immunizations and screening for infectious disease (1 source) Encounter for screening for human papillomavirus (HPV); Translations: [ENC SCREENING HUMAN PAPILLOMAVIRUS] Onset: 10-04-2020 Episodic Other screening for suspected conditions (not mental disorders or infectious disease) (4 sources) Encounter for screening for malignant neoplasm of cervix; Translations: [ENC SCREENING MALIG NEOPLASM CERV] Onset: 09-27-2020 Episodic Results Test Name Value Interpretation Reference Range Facility LIPID PROFILEon 10-24-2024 Cholesterol [Mass/Vol] 192 mg/dL Normal 150-200 [facility] Comment on above: Performed By: #### C BC, 1751-7, BMP, 81870-6, 2777-1, 3084-1, 2731-8, 23447-0 #### [facility] ([id number]) [address], [address] [place] [address] Cholesterol in HDL [Mass/Vol] 41 mg/dL Normal >39 [facility] Comment on above: Result Comment: HDL <40 mg/dL - High Risk HDL > or = 40mg/dL- Desirable HDL >60 mg/dL - Negative Risk Performed By: #### Marie REYNA, 1751-7, BMP, 31609-3, 2777-1, 3084-1, 2731-8, 35643-6 #### [facility] ([id number]) [address], [address] [place] [address] Cholesterol in LDL [Mass/Vol] 124 mg/dL Normal <130 [facility] Comment on above: Result Comment: LDL <100 mg/dL - Desirable LDL >160 mg/dL - High Risk Performed By: #### C AXEL, 1751-7, BMP, 02526-5, 2777-1, 3084-1, 2731-8, 79789-5 #### [facility] ([id number]) [address], [address] [place] [address] CHOLESTEROL:HDL 4.7 Normal 1.0-5.0 [facility] Comment on above: Performed By: #### Marie REYNA, 175-7, BMP, 22612-7, 2777-1, 3084-1, 2731-8, 20663-5 #### [facility] ([id number]) [address], [address] [place] [address] Triglyceride [Mass/Vol] 136 mg/dL Normal 27-150 [facility] Comment on above: Performed By: #### Marie BC, 1751-7, BMP, 42089-6, 2777-1, 3084-1, 2731-8, 80572-5 #### [facility] ([id number]) [address], [address] [place] [address] VERY LOW LIPOPROTEIN 27 mg/dL Normal 0-30 [facility] Comment on above: Performed By: #### Marie BC, 1751-7, BMP, 78930-3, 2777-1, 3084-1, 2731-8, 93854-7 #### [facility] ([id number]) [address], [address] [place] [address] ALBUMINon 09-14-2024 Albumin [Mass/Vol] 4.4 g/dL Normal 3.2-5.3 [facility] Comment on above: Performed By: #### Marie REYNA, 1751-7, BMP, 90144-0, 2777-1, 3084-1, 2731-8, 19784-5 #### [facility] ([id number]) [address], [address] [place] [address] BASIC METABOLIC PANELon 08-19 Anion gap [Moles/Vol] 9 mmol/L Normal 5-15 [facility] Comment on above: Performed By: #### Maire REYNA, 175-7, BMP, 43744-9, 2777-1, 3084-1, 2731-8, 80115-0 #### [facility] ([id number]) [address], [address] [place] [address] Calcium [Mass/Vol] 9.7 mg/dL Normal 8.5-10.5 [facility] Comment on above: Performed By: #### Marie REYNA, 1751-7, BMP, 16094-0, 2777-1, 3084-1, 2731-8, 83896-8 #### [facility] ([id number]) [address], [address] [place] [address] Chloride [Moles/Vol] 100 mmol/L Normal 98-109 [facility] Comment on above: Performed By: #### Marie REYNA, 1751-7, BMP, 37909-7, 2777-1, 3084-1, 2731-8, 27124-5 #### [facility] ([id number]) [address] [place] [address] CO2 [Moles/Vol] 27 mmol/L Normal 22-32 [facility] Comment on above: Performed By: #### C BC, 1750-7, BMP, 03343-9, 2777-1, 3084-1, 2731-8, 51162-5 #### [facility] ([id number]) [address], [address] [place] [address] Creatinine [Mass/Vol] 1.01 mg/dL High 0.40-1.00 [facility] Comment on above: Result Comment: METH OD TRACEABLE TO IDMS STANDARD Performed By: #### C BC, 1750-7, BMP, 39211-0, 2777-1, 3084-1, 2731-8, 20874-8 #### [facility] ([id number]) [address], [address] [place] [address] GFR/1.73 sq M.predicted among non-blacks MDRD (S/P/Bld) [Vol rate/Area] 65 mL/min/{1.73_m2} Normal >=60 [facility] Comment on above: Result Comment: Repo rted eGFR is based on the CKD-EPI 2020 equation that does not use a race coefficient. Performed By: #### C AXEL, 1750-7, BMP, 65747-5, 2777-1, 3084-1, 2731-8, 77200-5 #### [facility] ([id number]) [address], [address] [place] [address] Glucose [Mass/Vol] 118 mg/dL High 65-99 [facility] Comment on above: Performed By: #### C AXEL, 1750-7, BMP, 45393-8, 2777-1, 3084-1, 2731-8, 62018-4 #### [facility] ([id number]) [address], [address] [place] [address] Potassium [Moles/Vol] 3.8 mmol/L Normal 3.5-5.0 [facility] Comment on above: Performed By: #### C AXEL, 1750-7, BMP, 78149-5, 2777-1, 3084-1, 2731-8, 01386-9 #### [facility] ([id number]) [address], [address] [place] [address] Sodium [Moles/Vol] 136 mmol/L Normal 134-146 [facility] Comment on above: Performed By: #### C BC, 175-7, BMP, 86434-5, 2777-1, 3084-1, 2731-8, 62514-2 #### [facility] ([id number]) [address] [facility] [address] [place] [address] Urea nitrogen [Mass/Vol] 18 mg/dL Normal 5-23 [facility] Comment on above: Performed By: #### C AXEL, 175-7, BMP, 26949-2, 2777-1, 3084-1, 2731-8, 54723-6 #### [facility] ([id number]) [address], [address] [place] [address] CBC (NO DIFF)on 09-14-2024 Erythrocyte distribution width (RBC) [Ratio] 14.0 % Normal 11.5-15 [facility] Comment on above: Performed By: #### Marie REYNA, 175-7, BMP, 52384-5, 2777-1, 3084-1, 2731-8, 85925-0 #### [facility] ([id number]) [address], [address] [place] [address] Hematocrit (Bld) [Volume fraction] 37.3 % Normal 35-47 [facility] Comment on above: Performed By: #### Marie BC, 175-7, BMP, 01830-5, 2777-1, 3084-1, 2731-8, 21778-2 #### [facility] ([id number]) [address], [address] [place] [address] Hemoglobin (Bld) [Mass/Vol] 12.9 g/dL Normal 11.7-15.5 [facility] Comment on above: Performed By: #### C AXEL, 1751-7, BMP, 27773-4, 2777-1, 3084-1, 2731-8, 38553-1 #### [facility] ([id number]) [address] [place] [address] MCH (RBC) [Entitic mass] 31.5 pg Normal 27-34 [facility] Comment on above: Performed By: #### Marie REYNA, 175-7, BMP, 66383-0, 2777-1, 3084-1, 2731-8, 51023-9 #### [facility] ([id number]) [address], [address] [place] [address] MCHC (RBC) [Mass/Vol] 34.5 g/dL Normal 32-36 [facility] Comment on above: Performed By: #### Marie REYNA, 1750-7, BMP, 12317-2, 2777-1, 3084-1, 2731-8, 83981-0 #### [facility] ([id number]) [address], [address] [place] [address] MCV (RBC) [Entitic vol] 91 fL Normal 80-100 [facility] Comment on above: Performed By: #### Marie REYNA, 1750-7, BMP, 30529-3, 2777-1, 3084-1, 2731-8, 96078-3 #### [facility] ([id number]) [address], [address] [place] [address] Platelet mean volume (Bld) [Entitic vol] 7.9 fL Normal 7-12 [facility] Comment on above: Performed By: #### Marie REYNA, 175-7, BMP, 38997-4, 2777-1, 3084-1, 2731-8, 18973-7 #### [facility] ([id number]) [address], [address] [place] [address] Platelets (Bld) [#/Vol] 277 10*3/uL Normal 150-450 [facility] Comment on above: Performed By: #### Marie REYNA, 1751-7, BMP, 88461-1, 2777-1, 3084-1, 2731-8, 13617-6 #### [facility] ([id number]) [address] [facility] [address] [place] [address] RBC COUNT 4.09 X10E12/L Normal 3.8-5.2 [facility] Comment on above: Performed By: #### Marie REYNA, 175-7, BMP, 62644-6, 2777-1, 3084-1, 2731-8, 11474-0 #### [facility] ([id number]) [address] [facility] [address] [place] [address] WBC (Bld) [#/Vol] 6.0 10*3/uL Normal 4-11 [facility] Comment on above: Performed By: #### Marie REYNA, 1750-7, BMP, 31229-0, 2777-1, 3084-1, 2731-8, 11063-7 #### [facility] ([id number]) [address] [facility] [address] [place] [address] MAGNESIUMon 09-14-2024 Magnesium [Mass/Vol] 1.8 mg/dL Normal 1.8-2.6 [facility] Comment on above: Performed By: #### Marie REYNA, 175-7, BMP, 12838-5, 2777-1, 3084-1, 2731-8, 45703-1 #### [facility] ([id number]) [address] [facility] [address] [place] [address] PARATHYROID HORMOME, INTACTo n 09-14-2024 PTH INTACT 53 pg/mL Normal 12-88 [facility] Comment on above: Performed By: #### Marie REYNA, 175-7, BMP, 79106-2, 2777-1, 3084-1, 2731-8, 66560-1 #### [facility] ([id number]) [address] [place] [address] PHOSPHORUSon 09-14-2024 Phosphate [Mass/Vol] 4.3 mg/dL Normal 2.4-4.9 [facility] Comment on above: Performed By: #### C AXEL, 1751-7, [facility], 85123-4, 2777-1, 3084-1, 2731-8, 77197-6 #### [facility] ([id number]) [address], [address] [place] [address] VITAMIN D 25 HYDROXYon 09-14 VITAMIN D 25 HYD TOT 29.6 ng/mL Low 30.0-100.0 [facility] Comment on above: Order Comment: Vitam in D status 25 [place] Vitamin D Deficiency <20 ng/mLInsufficiency 20-29 ng/mLSufficiency 30-100 ng/mLToxicity >100 ng/mLNOTE: A pediatric reference range has not been established by the gravity meter observer of this kit. The [place] [employer] recommends a Vitamin D level of = or >20ng/mL in infants and children. Performed By: #### C , 1751-7, [facility], 31776-2, 2777-1, 3084-1, 2731-8, 82232-1 #### [facility] ([id number]) [address] [place] [address] BI MAMMOGRAM SCREENING TOMOS YNTHESIS BILATERALon 05-18-2024 BI MAMMOGRAM SCREENING TOMOSYNTHESIS BILATERAL This is a summary report. The complete report is available in the patient's medical record. If you cannot access the medical record, please contact the sending organization for a detailed fax or copy. Examination: BI MAMMOGRAM SCREENING TOMOSYNTHESIS BILATERAL Clinical [...] Mammogram ELECTRONICALLY SIGNED BY: Milan Mireles M.D. Normal Not Available ALBUMINon 03-17-2024 Albumin [Mass/Vol] 4.1 g/dL Normal 3.2-5.3 [facility] Comment on above: Performed By: #### C AXEL, 175-7, BMP, 14452-4, 2777-1, 3084-1, 2731-8, 12615-2 #### [facility] ([id number]) [address], [address] [place] [address] BASIC METABOLIC PANLon 03-17 Anion gap [Moles/Vol] 7 mmol/L Normal 5-15 [facility] Comment on above: Performed By: #### C BC, 175-7, BMP, 19149-4, 2777-1, 3084-1, 2731-8, 20457-2 #### [facility] ([id number]) [address], [address] [place] [address] Calcium [Mass/Vol] 9.0 mg/dL Normal 8.5-10.5 [facility] Comment on above: Performed By: #### C BC, 1751-7, BMP, 77128-0, 2777-1, 3084-1, 2731-8, 58528-1 #### [facility] ([id number]) [address], [address] [place] [address] Chloride [Moles/Vol] 102 mmol/L Normal 98-109 [facility] Comment on above: Performed By: #### C AXEL, 175-7, BMP, 13586-4, 2777-1, 3084-1, 2731-8, 70210-4 #### [facility] ([id number]) [address], [address] [place] [address] CO2 [Moles/Vol] 29 mmol/L Normal 22-32 [facility] Comment on above: Performed By: #### C BC, 1750-7, BMP, 80093-1, 2777-1, 3084-1, 2731-8, 05746-1 #### [facility] ([id number]) [address] [place] [address] Creatinine [Mass/Vol] 1.30 mg/dL High 0.40-1.00 [facility] Comment on above: Result Comment: METH OD TRACEABLE TO IDMS STANDARD Performed By: #### C AXEL, 7, BMP, 33014-6, 2777-1, 3084-1, 2731-8, 83742-3 #### [facility] ([id number]) [address] [place] [address] GFR/1.73 sq M.predicted among non-blacks MDRD (S/P/Bld) [Vol rate/Area] 49 mL/min/{1.73_m2} Low >59 [facility] Comment on above: Result Comment: Reported eGFR is based on the CKD-EPI 2020 equation that does not use a race coefficient. Performed By: #### C BC, 1750-7, BMP, 64171-7, 2777-1, 3084-1, 2731-8, 64573-4 #### [facility] ([id number]) [address], [address] [place] [address] Glucose [Mass/Vol] 103 mg/dL High 65-99 [facility] Comment on above: Performed By: #### C BC, 1750-7, BMP, 40525-6, 2777-1, 3084-1, 2731-8, 30765-4 #### [facility] ([id number]) [address] [place] [address] Potassium [Moles/Vol] 3.7 mmol/L Normal 3.5-5.0 [facility] Comment on above: Performed By: #### C AXEL, 175-7, BMP, 95895-5, 2777-1, 3084-1, 2731-8, 55067-1 #### [facility] ([id number]) [address] [place] [address] Sodium [Moles/Vol] 138 mmol/L Normal 134-146 [facility] Comment on above: Performed By: #### Marie REYNA, 1750-7, BMP, 12270-5, 2777-1, 3084-1, 2731-8, 44997-2 #### [facility] ([id number]) [address] [place] [address] Urea nitrogen [Mass/Vol] 20 mg/dL Normal 5-23 [facility] Comment on above: Performed By: #### C AXEL, 1750-7, BMP, 00147-2, 2777-1, 3084-1, 2731-8, 49869-5 #### [facility] ([id number]) [address] [place] [address] COMPLETE BLOOD COUNTon 03-17 Erythrocyte distribution width (RBC) [Ratio] 13.5 % Normal 11.5-15.0 [facility] Comment on above: Performed By: #### C BC, 1750-7, BMP, 70991-9, 2777-1, 3084-1, 2731-8, 76119-3 #### [facility] ([id number]) [address] [place] [address] Hematocrit (Bld) [Volume fraction] 39.1 % Normal 35-47 [facility] Comment on above: Performed By: #### Marie REYNA, 175-7, BMP, 66575-4, 2777-1, 3084-1, 2731-8, 14979-7 #### [facility] ([id number]) [address] [place] [address] Hemoglobin (Bld) [Mass/Vol] 13.2 g/dL Normal 11.7-15.5 [facility] Comment on above: Performed By: #### Marie BC, 1750-7, BMP, 31496-1, 2777-1, 3084-1, 2731-8, 42904-1 #### [facility] ([id number]) [address] [place] [address] MCH (RBC) [Entitic mass] 31.3 pg Normal 27-34 [facility] Comment on above: Performed By: #### Marie REYNA, 1750-7, BMP, 25002-3, 2777-1, 3084-1, 2731-8, 24338-9 #### [facility] ([id number]) [address] [place] [address] MCHC (RBC) [Mass/Vol] 33.8 g/dL Normal 32-36 [facility] Comment on above: Performed By: #### Marie REYNA, 1750-7, BMP, 67541-2, 2777-1, 3084-1, 2731-8, 52329-6 #### [facility] ([id number]) [address] [place] [address] MCV (RBC) [Entitic vol] 93 fL Normal 80-100 [facility] Comment on above: Performed By: #### Marie BC, 175-7, BMP, 93935-6, 2777-1, 3084-1, 2731-8, 65495-7 #### [facility] ([id number]) [address] [place] [address] Platelet mean volume (Bld) [Entitic vol] 7.8 fL Normal 7-12 [facility] Comment on above: Performed By: #### Marie REYNA, 175-7, BMP, 24049-3, 2777-1, 3084-1, 2731-8, 16870-2 #### [facility] ([id number]) [address] [place] [address] Platelets (Bld) [#/Vol] 284 10*3/uL Normal 150-450 [facility] Comment on above: Performed By: #### Marie REYNA, 1750-7, BMP, 86437-8, 2777-1, 3084-1, 2731-8, 20071-3 #### [facility] ([id number]) [address] [place] [address] RBC COUNT 4.23 X10E12/L Normal 3.80-5.20 [facility] Comment on above: Performed By: #### Marie REYNA, 1750-7, BMP, 42280-6, 2777-1, 3084-1, 2731-8, 75128-2 #### [facility] ([id number]) [address] [place] [address] WBC (Bld) [#/Vol] 4.7 10*3/uL Normal 4.0-11.0 [facility] Comment on above: Performed By: #### Marie REYNA, 1750-7, BMP, 78485-8, 2777-1, 3084-1, 2731-8, 06009-8 #### [facility] ([id number]) [address] [place] [address] MAGNESIUMon 03-17-2024 Magnesium [Mass/Vol] 1.9 mg/dL Normal 1.8-2.6 [facility] Comment on above: Performed By: #### Marie REYNA, 175-7, BMP, 97977-7, 2777-1, 3084-1, 2731-8, 11338-4 #### [facility] ([id number]) [address] [place] [address] MICROALBUMIN - ALBUMIN:CREAT ININE URINE RATIOon 03-17-2024 ALB/CREAT RATIO NOT CALCULATED Normal 0.0-30.0 [facility] Comment on above: Result Comment: Result for Albumin/Creatinine Ratio cannot be reliably calculated because urine albumin and or urine creatinine is below the detection limit of the assay. Performed By: #### MEKHI Vo #### [facility] ([id number]) [address] [place] [address] Albumin DL <= 20 mg/L (U) [Mass/Vol] mg/dL Normal 0.0-1.9 [facility] Comment on above: Performed By: #### MEKHI Vo #### [facility] ([id number]) [address], [address] [place] [address] URINE CREAT 148.72 mg/dL Normal [facility] Comment on above: Performed By: #### MEKHI Vo #### [facility] ([id number]) [address] [place] [address] PHOSPHORUSon 03-17-2024 Phosphate [Mass/Vol] 3.8 mg/dL Normal 2.4-4.9 [facility] Comment on above: Performed By: #### Marie REYNA, 175-7, BMP, 55501-1, 2777-1, 3084-1, 2731-8, 13414-5 #### [facility] ([id number]) [address] [place] [address] Parathyrin.intact [Mass/Vol] on 03-17-2024 PTH INTACT 139 pg/mL High 12-88 [facility] Comment on above: Performed By: #### Marie REYNA, 175-7, BMP, 29914-6, 2777-1, 3084-1, 2731-8, 77760-3 #### [facility] ([id number]) [address] [place] [address] URIC ACIDon 03-17-2024 Urate [Mass/Vol] 7.7 mg/dL High 2.6-7.2 [facility] Comment on above: Performed By: #### C BC, 1751-7, BMP, 18343-0, 2777-1, 3084-1, 2731-8, 47641-0 #### [facility] ([id number]) [address] [place] [address] URINALYSISon 03-17-2024 Bilirubin Ql (U) Negative Normal NEG [facility] Comment on above: Performed By: #### Ana Sam, MEKHI #### [facility] ([id number]) [address] [place] [address] BLOOD/HGB Negative Normal NEG [facility] Comment on above: Performed By: #### Ana Sam, MEKHI #### [facility] ([id number]) [address] [place] [address] Color (U) YELLOW Normal YELLOW [facility] Comment on above: Performed By: #### MEKHI Vo #### [facility] ([id number]) [address] [place] [address] Glucose Ql (U) Negative Normal NEG [facility] Comment on above: Performed By: #### Ana Sam, MEKHI #### [facility] ([id number]) [address] [place] [address] Ketones Ql (U) Negative Normal NEG [facility] Comment on above: Performed By: #### Ana Sam, MEKHI #### [facility] ([id number]) [address] [place] [address] Leukocyte esterase Test strip Ql (U) Negative Normal NEG [facility] Comment on above: Performed By: #### Ana Sam, EVERTIMOTHY #### [facility] ([id number]) [address] [place] [address] Nitrite Ql (U) Negative Normal NEG [facility] Comment on above: Performed By: #### Ana Sam, EVERTIMOTHY #### [facility] ([id number]) [address] [place] [address] pH (U) 5.5 [pH] Normal 5.0-8.5 [facility] Comment on above: Performed By: #### Ana Sam, MEKHI #### [facility] ([id number]) [address] [place] [address] Protein Ql (U) Negative Normal NEG [facility] Comment on above: Performed By: #### Ana Sam, EVERTIMOTHY #### [facility] ([id number]) [address] [place] [address] Specific gravity (U) [Rel density] 1.022 Normal 1.003-1.035 [facility] Comment on above: Performed By: #### Ana Sam, MEKHI #### [facility] ([id number]) [address] [place] [address] TURBIDITY CLEAR Normal CLEAR [facility] Comment on above: Performed By: #### Ana Sam, MEKHI #### [facility] ([id number]) [address] [place] [address] Urobilinogen (U) [Mass/Vol] mg/dL Normal <1.1 [facility] Comment on above: Performed By: #### Ana Sam, EVERTIMOTHY #### [facility] ([id number]) [address], [address] [place] [address] Vitamin D+Metabolites [Mass/ Vol]on 03-17-2024 VITAMIN D 25 HYD TOT 15.4 ng/mL Low 30-100 [facility] Comment on above: Result Comment: Vitamin D status 25 [place] Vitamin D Deficiency <20 ng/mL Insufficiency 20-29 ng/mL Sufficiency 30-100 ng/mL Toxicity >100 ng/mL NOTE: A pediatric reference range has not been established by the gravity meter observer of this kit. The [place] [employer] recommends a Vitamin D level of = or >20ng/mL in infants and children. Performed By: #### C BC, 1751-7, BMP, 67971-1, 2777-1, 3084-1, 2731-8, 86140-1 #### [facility] ([id number]) [address], [address] [place] [address] SCREENING MAMMOGRAM W/HERACLIO, BILATERAL*on 05-07-2022 SCREENING MAMMOGRAM [...] VERY IMPORTANT TO YOUR HEALTH. THE CURRENT [employer] GUIDELINES RECOMMENDS ANNUAL MAMMOGRAPHY BEGINNING AT AGE 40 THIS FACILITY USES A REMINDER SYSTEM TO ENSURE ALL PATIENTS RECEIVE REMINDER NOTIFICATIONS AT THE APPROPRIATE TIME BASED ON THE RECOMMENDATIONS OF THIS EXAM. Report reported and signed by Higinio Abbasi on 05/08/2022 0713 Normal [facility] [employer] Pap IG, rfx Aptima HPV, rfx 16/18,45on 10-03-2020 . . Normal [facility] Comment on above: Result Comment: Perf ormed at: WB Performed By: #### P APHR2A #### [facility] [address] [place], [place] [address] Elliott Chris DIAGNOSIS: Comment Normal [facility] Comment on above: Result Comment: NEGA TIVE FOR INTRAEPITHELIAL LESION OR MALIGNANCY. PREDOMINANCE OF COCCOBACILLI CONSISTENT WITH SHIFT IN VAGINAL BETZY IS PRESENT. Performed at: WB Performed By: #### P APHR2A #### [facility] [address] [place] [address] Elliottgregg Chris HPV Aptima Positive Abnormal Negative [facility] Comment on above: Result Comment: This nucleic acid amplification test detects fourteen high-risk HPV types (16,18,31,33,35,39,45,51,52,56,58,59,66,68) without differentiation. Performed at: =G Performed By: #### P APHR2A #### [facility] [address] [place] [address] Elliott Chris HPV Genotype 16 Negative Normal Negative [facility] Comment on above: Result Comment: Perf ormed at: =G Performed By: #### P APHR2A #### [facility] [address] [place] [address] Elliott Chris HPV Genotype 18,45 Negative Normal [facility] Comment on above: Result Comment: Perf ormed at: =G Performed By: #### P APHR2A #### [facility] [address] [place] [address] Elliott Chris Methodology: Comment Normal [facility] Comment on above: Result Comment: This liquid based ThinPrep(R) pap test was screened with the use of an image guided system. Performed at: [facility] Performed By: #### P APHR2A #### [facility] [address] [place] [address] Elliott Dot Note: Comment Normal [facility] Comment on above: Result Comment: The Pap smear is a screening test designed to aid in the detection of premalignant and malignant conditions of the uterine cervix. It is not a diagnostic procedure and should not be used as the sole means of detecting cervical cancer. Both false-positive and false-negative reports do occur. . Performed at: [facility] Performed By: #### P APHR2A #### [facility] [address] [place] [address] Elliott Dot Performed by: Comment Normal [facility] Comment on above: Result Comment: Angela Prater, Software Packaging Engineer (ASCP) Performed at: [facility] Performed By: #### P APHR2A #### [facility] [address], [place] [address] Elliott Chris Specimen adequacy: Comment Normal [facility] Comment on above: Result Comment: Sati sfactory for evaluation. No endocervical component is identified. Performed at: [facility] Performed By: #### P APHR2A #### [facility] [address] [place], [place] [address] Elliott Chris Encounters Encounter Date Encounter Type Care Provider Facility Start: 10-24-2024 ambulatory [facility] Start: 10-05-2024 End: 10-05-2024 Orders Only [facility] [employer] Work Phone: INTERFACE-ONLY ATLAS Start: 09-14-[address] [facility] Start: 05-18-2024 End: 05-18-2024 ambulatory TERESA JAMIE Not Available Start: 03-17-2024 End: 03-17-[address] [facility] spital Start: 12-31-2023 End: 12-31-2023 ambulatory ED Babak TORRES Not Available Start: 09-27-2020 End: 09-27-2020 ambulatory FELICITA BARRIENTOS Facility: Plan of Treatment Date Care Activity Detail Author Start: 01-18-2025 Influenza vaccination Influenza Vacc ine [facility] Start: 10-05-2024 End: 10-05-2025 Lipid 1996 panel - Serum or Plasma Lipid profile Lab Routine Expected: 10/05/2024, Expires: 10/05/2025 [facility] Work Phone: Comment on above: Expected: 10/05/2024 , Expires: 10/05/2025 Start: 05-28-2024 Adult BMI Screening Adult BMI Screen ing [facility] Start: 05-28-2024 Tobacco Screening Tobacco Screening [facility] Start: 01-19-2024 COVID-19 Vaccine () COVID-19 Vaccine () [facility] Start: 2018 Administration of varicella zoster vaccine Zoster (Shingles) Vaccine (1 of 2) [facility] Start: 1989 Screening for malign ant neoplasm of cervix Pap Smear [facility] Start: 08-12-1987 DTaP,Tdap and Td Vac cines (1 - Tdap) DTaP,Tdap and Td Vaccines (1 - Tdap) [facility] Start: 1980 Depression Screening Depression Scre ening [facility] Payers Date Payer Category Payer Managed Care Other (unspecified) [employer] [id number] 2020 Unknown [id number] 1968 Unknown [id number] 1968 Unknown [id number] [id number] 1968 Unknown [id number] [id number] 1968 Unknown [id number]. [id number] 1968 Unknown [id number] [id number] 1968 Unknown [id number] [id number] 1968 Unknown [id number] [id number] 1959 Unknown [id number] Social History Date Type Detail Facility Start: [facility]28[facility]23 [facility] Start: 05-20-1993 End: 05-20-2023 History of tobacco use Current smoker [facility] Start: 05-20-1993 End: 05-20-2023 History of tobacco use Cigarette Smoker [facility] Start: 06-30-2020 End: 05-28-2023 Cigarettes smoked current (pack per day) - Reported 0.5 [facility] History of tobacco use Passive smoker [facility] Start: 05-28-2023 Tobacco use and exposure Smokeless tobacco non-user [facility] Start: 06-30-2020 End: 05-28-2023 Tobacco use panel [facility] Childcare Unknown [facility] Start: 1970 Sex assigned at Not on file P [facility] Start: 12-23-2014 Sex Female (finding) [facility] Instructions Note Date & Type Note Facility Instructions Not on filedocumented in this en counter [facility] Summary Purpose Family History No Family History [...] DATE CREATED AUTHOR AUTHOR'S ORGANIZ ATION 05/11/2022 [facility] dical Specialist DATE CREATED AUTHOR AUTHOR'S ORGANIZ ATION 05/28/2024 [facility] dical Specialists EPIC DATE CREATED AUTHOR AUTHOR'S ORGANIZ ATION 10/25/2024 [facility] Care Teams (unrecognized sec tion and content) 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 [facility] [employer] [facility]. provides no warranty or guarantee of the accuracy or completeness of information in this document.
--- NOTE | 2025-03-02 15:59 | CT_ITS ---
The [address] [address] Patient Name: VITA KIDD MRN: [id number] date: 1970 Sex: F Assigned Patient Location: CT Current Patient Location: CT Accession/Order Number: [id number] Exam Date: 03/02/2025 16:02 Report Date: 03/02/2025 21:11 At the request of: FABIANA CERON DO Procedure: CT chest wo con CT chest wo con 03/02/2025 4:09 PM SIGN AND SYMPTOMS: Follow-up lung nodules TECHNIQUE: Multidetector CT axial slices of the chest were obtained without IV contrast. Multiplanar reformats were performed and viewed on a separate workstation and reviewed to further define anatomy and possible pathology. CT was performed with one or more of the following dose reduction techniques: Automated exposure control, adjustment of the mA and/or kV according to patient size, or use of iterative reconstruction technique. COMPARISON: 02/19/2024. FINDINGS: Lower neck: Thyroid gland within normal limits, no supraclavicle adenopathy. Vessels: Atherosclerotic changes are noted in the thoracic aorta. Mediastinum and [place]: Within normal limits. Heart: Normal size. No pericardial effusion. Airways: Within normal limits Lungs: Similar nodular opacities are noted in the right upper and lower lobes with irregular margins. The largest measures approximately 1.9 cm in greatest dimension. These are unchanged. Pleura: Within normal limits. Chest Wall: Within normal limits. Upper Abdomen: Within normal limits. Bones: Degenerative changes are noted in the cervical and thoracic spine. CT/CT chest wo con IMPRESSION: Similar nodular opacities are noted in the right upper and lower lobes with irregular margins. The largest measures approximately 1.9 cm in greatest dimension. These are unchanged. Impression dictated by: Tyson Cardoso M.D. 03/02/2025 9:11 PM [facility] Electron[facility] authenticated by: [id number] Y Date: 03/02/2025 21:11
== END 2025-03-02 15:32 | disposition home or self-care (01) ==
PROVIDERS: PCP Nurse Practitioner; Visit Provider Internal Medicine
DX: R91.8 Other nonspecific abnormal finding of lung field (principal)
CPT/HCPCS: 71250